=== PATIENT | female | born 1960 | race Caucasian/White ===

== ENCOUNTER 2017-05-26 06:30 | Day surgery (SDC) | payer BC ==
[2017-05-26] MEDS ORDERED: Lactated Ringers 1,000 ML IV SCH (06:45)
[2017-05-26] MEDS ORDERED: Sodium Chloride 0.9% 1,000 ML IV SCH (07:02)
[2017-05-26] MEDS ORDERED: Propofol 200 MG/20 ML SDV ONE (07:25)
[2017-05-26] MEDS ORDERED: Midazolam 1 MG/ML 2 ML SDV ONE (07:25)
[2017-05-26] MEDS ORDERED: fentaNYL 100 MCG/2 ML SDV ONE (07:25)
[2017-05-26 08:48] VITALS: BP 109/74
--- NOTE | 2017-05-26 15:08 | OR ---
DATE OF PROCEDURE: 05/26/2017 PROCEDURE: EGD. FINDINGS: Inflammation at the GE junction consistent with reflux disease (biopsied multiple times using cold biopsy forceps). PREOPERATIVE DIAGNOSIS: Epigastric pain. POSTOPERATIVE DIAGNOSIS: Epigastric pain. RISKS: Risks, benefits, alternatives, and limitations including, but not limited to, infection, bleeding, and perforation were explained to the patient and wished to proceed. PROCEDURE IN DETAIL: The patient was placed in the left lateral decubitus position. The EGD scope was advanced atraumatically to the second part of the duodenum. No abnormalities in the duodenum with respect to bulb ulceration or abnormality. In the stomach itself, there is no gastritis or ulceration. Mild sized hiatal hernia was noted. Inflammation at GE junction was consistent with reflux disease. This was biopsied x6 using cold biopsy forceps in all 4 quadrants. No abnormalities of the esophagus were noted. The patient tolerated the procedure well. Neri Krishna MD /[id number]
== END 2017-05-26 09:20 | disposition home or self-care (01) ==
LOC: JP.SDS 06:30
PROVIDERS: ATTEND Surgery
DX: K21.0 Gastro-esophageal reflux disease with esophagitis (principal); K44.9 Diaphragmatic hernia without obstruction or gangrene; Z88.2 Allergy status to sulfonamides
CPT/HCPCS: 43239; J2250; J2704; J3010; J7040; 88305; J7030

== ENCOUNTER 2024-05-10 08:17 | Day surgery (SDC) | payer MEDICAID ==
[2024-05-10] MEDS: Lactated Ringers 1,000 ML IV SCH (08:50)
[2024-05-10] MEDS ORDERED: Propofol 200 MG/20 ML SDV ONE (09:53)
[2024-05-10] MEDS ORDERED: Midazolam 1 MG/ML 2 ML SDV ONE (09:53)
[2024-05-10] MEDS ORDERED: fentaNYL 50 MCG/ML SDV ONE (09:53)
[2024-05-10 12:11] VITALS: BP 133/61; PULSE 63
== END 2024-05-10 12:26 | disposition home or self-care (01) ==
LOC: JP.SDS 08:17
PROVIDERS: ATTEND Surgery
DX: D12.2 Benign neoplasm of ascending colon (principal); K52.9 Noninfective gastroenteritis and colitis, unspecified; I10 Essential (primary) hypertension; K21.9 Gastro-esophageal reflux disease without esophagitis
CPT/HCPCS: 00811-QZ; 88305; J2250; J2704; J3010; J7120